=== PATIENT | female | born 1960 | race Caucasian/White ===

== ENCOUNTER 2019-05-27 18:12 | Emergency (ER) | payer SELFPAY ==
[2019-05-27] MEDS ORDERED: HYDROCODONE/ACETAMINOPHEN 5-325 MG TABLET PO ONE (19:22)
--- NOTE | 2019-05-27 19:31 | ER Document Report ---
ED Medical Screen (RME) - General Chief Complaint: Wrist Injury Stated Complaint: WRIST INJURY Time Seen by Provider: 05/27/19 19:00 Mode of Arrival: Ambulatory Information source: Patient Notes: Patient states she was rollerskating this evening and fell backwards landed on outstretched hand. Patient with positive deformity to right wrist. Patient denies any other injury. I have greeted and performed a rapid initial assessment of this patient. A comprehensive ED assessment and evaluation of the patient, analysis of test results and completion of the medical decision making process will be conducted by additional ED providers. TRAVEL OUTSIDE OF THE [place] IN LAST 30 DAYS: No - Related Data Allergies/Adverse Reactions: No Known Allergies Allergy (Verified 05/27/19 19:19) Past Medical History - Social History Chew tobacco use (# tins/day): No Frequency of alcohol use: None Drug Abuse: None Physical Exam - Vital signs Vitals: Temp Pulse Resp BP Pulse Ox 98.5 F 64 20 114/62 94 05/27/19 18:27 05/27/19 18:27 05/27/19 18:27 05/27/19 18:27 05/27/19 18:27 - General General appearance: Alert Notes: 2+ radial pulse, positive deformity to right wrist Course - Vital Signs Vital signs: Temp Pulse Resp BP Pulse Ox 98.5 F 64 20 114/62 94 05/27/19 19:19 05/27/19 18:27 05/27/19 19:19 05/27/19 18:27 05/27/19 19:19
--- NOTE | 2019-05-27 19:50 | RADIOLOGY REPORT (SQ) ---
EXAM DESCRIPTION: WRIST RIGHT 3 VIEWS COMPLETED DATE/TIME: 05/27/2019 7:40 pm REASON FOR STUDY: FOOSH COMPARISON: None. EXAM PARAMETERS: NUMBER OF VIEWS: Three views. TECHNIQUE: AP, lateral and oblique radiographic images acquired of the right wrist. LIMITATIONS: None. FINDINGS: MINERALIZATION: Osteopenia. BONES: Minimally displaced distal radial fracture with small intra-articular components. Tiny ulnar styloid avulsion fracture. Radiocarpal relationship is preserved. JOINTS: No effusion. SOFT TISSUES: Mild soft tissue swelling. No radiopaque foreign body. OTHER: No other significant finding. IMPRESSION: Minimally displaced distal radial fracture with small intra-articular components. Tiny ulnar styloid avulsion fracture. Radiocarpal relationship is preserved. TECHNICAL DOCUMENTATION: JOB ID: [id number] [id number] 2010 [employer]- All Rights Reserved Reading location - IP/workstation name: [employer]
--- NOTE | 2019-05-27 20:07 | ER Document Report ---
HPI - HPI Patient complains to provider of: Wrist injury Time Seen by Provider: 05/27/19 19:00 Onset: Just prior to arrival Onset/Duration: Sudden Quality of pain: Achy Pain Level: 3 Context: Patient states she was rollerskating backwards and fell on outstretched hand injuring the right wrist. Patient with swelling to the right wrist. Associated Symptoms: Other - Right wrist injury Exacerbated by: Movement Relieved by: Denies Similar symptoms previously: No Recently seen / treated by doctor: No - ROS ROS below otherwise negative: Yes Systems Reviewed and Negative: Yes All other systems reviewed and negative - GASTROINTESTINAL Gastrointestinal: DENIES: Nausea, Patient vomiting - REPRODUCTIVE Reproductive: DENIES: : - MUSCULOSKELETAL Musculoskeletal: REPORTS: Extremity pain, Swelling - DERM Skin Color: Ecchymosis Skin Problems: None Past Medical History - General Information source: Patient - Social History Smoking Status: Current Every Day Smoker Chew tobacco use (# tins/day): No Frequency of alcohol use: None Drug Abuse: None Occupation: None Lives with: Family Family History: Reviewed & Not Pertinent Patient has suicidal ideation: No Patient has homicidal ideation: No - Medical History Medical History: Negative Past Surgical History: Reports: Hx Orthopedic Surgery Vertical Provider Document - CONSTITUTIONAL Agree With Documented VS: Yes Exam Limitations: No Limitations General Appearance: WD/WN, No Apparent Distress - INFECTION CONTROL TRAVEL OUTSIDE OF THE [place] IN LAST 30 DAYS: No - HEENT HEENT: Atraumatic, Normocephalic - NECK Neck: Normal Inspection, Supple - RESPIRATORY Respiratory: Breath Sounds Normal, No Respiratory Distress - CARDIOVASCULAR Cardiovascular: Regular Rate, Regular Rhythm Pulses: Normal: Radial - MUSCULOSKELETAL/EXTREMETIES Musculoskeletal/Extremeties: MAEW, Tender - Right wrist tenderness over distal radius, 2+ edema, plus deformity, Edema, Eccymosis - NEURO Level of Consciousness: Awake, Alert, Appropriate Motor/Sensory: No Motor Deficit, No Sensory Deficit - DERM Integumentary: Warm, Dry Course - Re-evaluation Re-evalutation: 05/27/19 20:04 Patient will be immobilized in a sugar tong splint and referred to orthopedics for further evaluation. Patient neurovascularly intact with 2+ radial pulse. Good return precautions discussed. Patient now states that left wrist is mildly tender. Patient offered additional imaging of the left wrist. Patient declines any other x-rays at this time. - Vital Signs Vital signs: Temp Pulse Resp BP Pulse Ox 98.5 F 64 20 114/62 94 05/27/19 19:19 05/27/19 18:27 05/27/19 19:19 05/27/19 18:27 05/27/19 19:19 - Diagnostic Test Radiology reviewed: Image reviewed, Reports reviewed Discharge - Discharge Clinical Impression: Radius and ulna distal fracture Qualifiers: Encounter type: initial encounter Fracture type: closed Laterality: right Qualified Code(s): S52.501A - Unspecified fracture of the lower end of right radius, initial encounter for closed fracture Condition: Stable Disposition: HOME, SELF-CARE Instructions: Fractured Radius and Ulna ([facility]), Ice & Elevation ([facility]), Oral Narcotic Medication ([facility]), Sling to be Used ([facility]), Splint Precautions ([facility]) Additional Instructions: Return immediately for any new or worsening symptoms Followup with your primary care provider, call tomorrow to make a followup appointment Follow-up with orthopedics for further evaluation, call tomorrow to make a follow-up appointment Prescriptions: Naproxen [Naprosyn 250 Nmg Tablet] 1 tab PO BID #14 tablet Hydrocodone/Acetaminophen [[place] 5-325 mg Tablet] 1 tab PO Q6 PRN #15 tablet PRN Reason: Referrals: ANSHUL ROTHMAN MD [ACTIVE PROVISIONAL STAFF] - Follow up as needed [facility] [Provider Group] - Follow up as needed
[2019-05-28 02:30] VITALS: BP 107/48
== END 2019-05-27 20:30 | disposition home or self-care (01) ==
LOC: ER 18:12
PROC: 2W3CX1Z Immobilization of Right Lower Arm using Splint (ICD-10-PCS; principal; 2019-05-27)
DX: S52.501A Unspecified fracture of the lower end of right radius, initial encounter for closed fracture (principal); M79.89 Other specified soft tissue disorders; M25.531 Pain in right wrist; W19.XXXA Unspecified fall, initial encounter; F17.200 Nicotine dependence, unspecified, uncomplicated
CPT/HCPCS: 99283